=== PATIENT | female | born 1995 | race Caucasian/White ===

== ENCOUNTER 2020-06-03 06:04 | Emergency (ER) | payer MEDICAID ==
[~2020-06-03] VITALS: Ht 172.7 cm; Wt 113.6 kg
[~2020-06-03 06:04] MED LIST: CYCL-1 PO
[2020-06-03 06:10] VITALS: BP 156/108
[2020-06-03] MEDS ORDERED: SULF1TAB49 PO (06:30)
== END 2020-06-03 07:10 | disposition home or self-care (01) ==
LOC: ER 06:04
DX: S01.332A Puncture wound without foreign body of left ear, initial encounter (principal); H60.12 Cellulitis of left external ear; M19.90 Unspecified osteoarthritis, unspecified site; M41.9 Scoliosis, unspecified; Z79.899 Other long term (current) drug therapy; X58.XXXA Exposure to other specified factors, initial encounter; Y93.89 Activity, other specified; Y92.89 Other specified places as the place of occurrence of the external cause; Y99.8 Other external cause status
CPT/HCPCS: 99283

== ENCOUNTER 2020-06-08 01:16 | Emergency (ER) | payer MEDICAID ==
[~2020-06-08] VITALS: Ht 172.7 cm; Wt 113.6 kg
[~2020-06-08 01:16] MED LIST changes: +SULF1TAB49 PO
--- NOTE | 2020-06-08 02:39 | NUR ---
HR 102, OTHERWISE VSS. PT REPORTS PAIN NOW 5 OUT OF 10, FROM 8 OUT OF 10 EARLIER. REFUSING COVID TEST, STATES SHE HAS BEEN VERY CAUTIOUS AND ONLY SEES HER IMMEDIATELY FAMILY. EKG COMPLETED. MD TO TALK WITH PT NOW SHE WANTS TO ORDER LABS.
[2020-06-08 03:09] LABS: BASOPHILS % (AUTO) 0.6 % (0-1); EOSINOPHILS # (AUTO) 0.1 X10'3 (0-0.9); EOSINOPHILS % (AUTO) 1.5 % (0-6); HEMATOCRIT 37.6 % (35.0-45.0); HEMOGLOBIN 12.5 g/dl (12.0-16.0); LYMPHOCYTES # (AUTO) 1.1 X10'3 (1.1-4.8); LYMPHOCYTES % (AUTO) 20.4 % (21-51); MEAN CORPUSCULAR HEMOGLOBIN 26.7 PG (27.0-31.0); MEAN CORPUSCULAR HGB CONC 33.3 g/dL (33.0-36.5); MEAN CORPUSCULAR VOLUME 80.2 FL (78-98); MEAN PLATELET VOLUME 7.8 FL (7.4-10.4); MONOCYTES # (AUTO) 0.7 X10'3 (0-0.9); NEUTROPHILS # (AUTO) 3.3 X10'3 (1.8-7.7); NEUTROPHILS % (AUTO) 63.5 % (42-75); PLATELET COUNT 370 X10'3 (140-440); RED BLOOD COUNT 4.69 X10'6 (4.20-5.60); RED CELL DISTRIBUTION WIDTH 13.8 % (11.5-14.5); WHITE BLOOD COUNT 5.1 X10'3 (4.5-11.0)
[2020-06-08 03:19] LABS: ALBUMIN 3.3 G/DL (3.4-5.0); ANION GAP 10 (8-16); BLOOD UREA NITROGEN 8 MG/DL (7-18); BUN/CREATININE RATIO 10.8 (6.6-38.0); CHLORIDE 104 MMOL/L (99-107); CREATININE 0.74 MG/DL (0.40-0.90); GLUCOSE 98 MG/DL (70-104); SODIUM 136 MMOL/L (135-145); TOTAL CARBON DIOXIDE 21.8 MMOL/L (24-32); eGFR > 90 ML/MIN
[2020-06-08 03:22] LABS: D-DIMER 0.72 MG/L FEU (0-0.50)
[2020-06-08] MEDS ORDERED: iohexol 350MG/ML 100ml bottle IV ONE (03:43)
[2020-06-08 04:20] VITALS: BP 157/110
[2020-06-08] MEDS ORDERED: DESO1TAB PO (04:42)
[2020-06-08] MEDS ORDERED: BACDS PO (04:42)
== END 2020-06-08 05:55 | disposition home or self-care (01) ==
LOC: ER 01:17
DX: B34.9 Viral infection, unspecified (principal); R06.09 Other forms of dyspnea; R00.2 Palpitations; M54.2 Cervicalgia; R05 Cough; M79.10 Myalgia, unspecified site; M19.90 Unspecified osteoarthritis, unspecified site; Z79.2 Long term (current) use of antibiotics; Z79.899 Other long term (current) drug therapy
CPT/HCPCS: 36415; 71275; 80048; 85025; 85379; 93005; 99285; Q9967

== ENCOUNTER 2020-06-10 16:38 | Emergency (ER) | payer MEDICAID ==
[~2020-06-10] VITALS: Ht 172.7 cm; Wt 116.0 kg
[~2020-06-10 16:38] MED LIST changes: +BACDS PO; -CYCL-1 PO; +DESO1TAB PO; -SULF1TAB49 PO
[2020-06-10 16:50] VITALS: BP 140/97
[2020-06-10] MEDS ORDERED: prednisone 10mg tablet PO SCH (19:15)
[2020-06-10] MEDS ORDERED: predniSONE 20 mg tablet PO ONE (19:15)
[2020-06-10] MEDS ORDERED: famotidine 20mg tablet PO ONE (19:15)
[2020-06-10] MEDS ORDERED: diphenhydrAMINE 25mg capsule PO ONE (19:15)
[2020-06-10] MEDS ORDERED: FAMO-128 PO (19:18)
[2020-06-10] MEDS ORDERED: PRED20TA PO (19:18)
[2020-06-10] MEDS ORDERED: DIPH-423 PO (19:18)
== END 2020-06-10 19:40 | disposition home or self-care (01) ==
LOC: ER 16:39
DX: L50.9 Urticaria, unspecified (principal); M19.90 Unspecified osteoarthritis, unspecified site; Z79.899 Other long term (current) drug therapy
CPT/HCPCS: 99284; J7512; Q0163

== ENCOUNTER 2021-03-16 16:17 | Emergency (ER) | payer MEDICAID ==
[~2021-03-16] VITALS: Ht 172.7 cm; Wt 108.2 kg
[~2021-03-16 16:17] MED LIST changes: -BACDS PO; +DIPH-423 PO; +FAMO-128 PO; +SULF1TAB45 PO
[2021-03-16 16:27] VITALS: BP 153/90
[2021-03-16 17:21] LABS: BASOPHILS % (AUTO) 0.3 % (0-1); EOSINOPHILS % (AUTO) 0.2 % (0-6); HEMATOCRIT 38.4 % (35.0-45.0); HEMOGLOBIN 12.6 g/dl (12.0-16.0); LYMPHOCYTES # (AUTO) 1.6 X10'3 (1.1-4.8); LYMPHOCYTES % (AUTO) 12.9 % (21-51); MEAN CORPUSCULAR HEMOGLOBIN 27.4 PG (27.0-31.0); MEAN CORPUSCULAR HGB CONC 32.8 g/dL (33.0-36.5); MEAN CORPUSCULAR VOLUME 83.6 FL (78-98); MONOCYTES # (AUTO) 0.4 X10'3 (0-0.9); MONOCYTES % (AUTO) 3.5 % (2-12); NEUTROPHILS # (AUTO) 10.4 X10'3 (1.8-7.7); NEUTROPHILS % (AUTO) 83.1 % (42-75); PLATELET COUNT 447 X10'3 (140-440); RED BLOOD COUNT 4.59 X10'6 (4.20-5.60); RED CELL DISTRIBUTION WIDTH 15.8 % (11.5-14.5); WHITE BLOOD COUNT 12.6 X10'3 (4.5-11.0)
[2021-03-16 17:37] LABS: ALANINE AMINOTRANSFERASE 18 U/L (12-78); ALBUMIN 3.4 G/DL (3.4-5.0); ALBUMIN/GLOBULIN RATIO 0.8 (1.1-1.5); ALKALINE PHOSPHATASE 96 IU/L (46-116); ANION GAP 11 (8-16); ASPARTATE AMINO TRANSFERASE 8 U/L (10-37); BILIRUBIN,TOTAL 0.3 MG/DL (0.1-1.0); BLOOD UREA NITROGEN 13 MG/DL (7-18); BUN/CREATININE RATIO 17.1 (6.6-38.0); CALCIUM 8.6 MG/DL (8.5-10.1); CHLORIDE 107 MMOL/L (99-107); CREATININE 0.76 MG/DL (0.40-0.90); GLUCOSE 142 MG/DL (70-104); LIPASE 60 U/L (73-393); POTASSIUM 3.9 MMOL/L (3.5-5.1); SODIUM 142 MMOL/L (135-145); TOTAL CARBON DIOXIDE 24.3 MMOL/L (24-32); TOTAL PROTEIN 7.6 G/DL (6.4-8.2); eGFR > 90 ML/MIN
[2021-03-16] MEDS ORDERED: HYDR-3686 PO (22:02)
== END 2021-03-16 22:24 | disposition home or self-care (01) ==
LOC: ER 16:19 → ED HOLD 20:40 → ER 20:40
DX: R07.89 Other chest pain (principal); R10.13 Epigastric pain; M19.90 Unspecified osteoarthritis, unspecified site; Z79.899 Other long term (current) drug therapy
CPT/HCPCS: 71045; 80053; 83690; 84484; 85025; 93005; 99285

== ENCOUNTER 2022-01-26 18:20 | Emergency (ER) | payer MEDICAID ==
[~2022-01-26] VITALS: Ht 172.7 cm; Wt 122.0 kg
[2022-01-26 18:25] VITALS: BP 144/99
[2022-01-26 19:30] LABS: MONOTEST NEGATIVE (Neg)
== END 2022-01-26 20:36 | disposition home or self-care (01) ==
LOC: ER 18:20
DX: J02.9 Acute pharyngitis, unspecified (principal); M19.90 Unspecified osteoarthritis, unspecified site
CPT/HCPCS: 36415; 86308; 87081; 87880; 99283

== ENCOUNTER 2023-08-13 15:40 | Emergency (ER) | payer MEDICAID ==
[~2023-08-13] VITALS: Ht 172.7 cm; Wt 122.8 kg
[2023-08-13 15:41] VITALS: BP 147/87; O2SAT 99
[2023-08-13 16:10] LABS: BILIRUBIN,URINE NEGATIVE (Neg); CLARITY,URINE SLIGHTLY CLOUDY (Clear); COLOR,URINE YELLOW (Yellow); GLUCOSE, URINE NEGATIVE (Neg); KETONES,URINE NEGATIVE (Neg); LEUKOCYTE ESTERASE ,URINE NEGATIVE (Neg); NITRITES, URINE NEGATIVE (Neg); OCCULT BLOOD,URINE NEGATIVE (Neg); PROTEIN,URINE NEGATIVE (Neg); UROBILINOGEN,URINE 0.2 E.U/dL (0.2-1.0)
[2023-08-13 16:20] LABS: UA COLLECTION TYPE CLN CATCH MIDSTREAM
[2023-08-13 16:23] LABS: MUCUS STRANDS MANY /LPF (Neg); SQUAMOUS EPITHELIAL CELL,UR MANY /LPF (FEW)
[2023-08-13 16:24] LABS: AMORPHOUS URATES 1+; BACTERIA,URINE FEW /HPF (Neg); RBC,URINE 0-2 /HPF (0-2); TRANSITIONAL EPI CELLS,URINE FEW /HPF; WBC,URINE 0-4 /HPF (0-4)
[2023-08-13 18:03] LABS: URINE HCG NEGATIVE (NEG)
[2023-08-13 19:27] LABS: BASOPHILS # (AUTO) 0.1 X10'3 (0-0.2); BASOPHILS % (AUTO) 0.8 % (0-1); EOSINOPHILS # (AUTO) 0.7 X10'3 (0-0.9); EOSINOPHILS % (AUTO) 6.3 % (0-6); HEMATOCRIT 42.5 % (35.0-45.0); LYMPHOCYTES # (AUTO) 3.8 X10'3 (1.1-4.8); LYMPHOCYTES % (AUTO) 32.4 % (21-51); MEAN CORPUSCULAR HEMOGLOBIN 28.1 PG (27.0-31.0); MEAN CORPUSCULAR VOLUME 84.9 FL (78-98); MONOCYTES # (AUTO) 0.7 X10'3 (0-0.9); MONOCYTES % (AUTO) 6.1 % (2-12); NEUTROPHILS # (AUTO) 6.3 X10'3 (1.8-7.7); NEUTROPHILS % (AUTO) 54.4 % (42-75); PLATELET COUNT 372 X10'3 (140-440); RED CELL DISTRIBUTION WIDTH 14.3 % (11.5-14.5); WHITE BLOOD COUNT 11.6 X10'3 (4.5-11.0)
[2023-08-13 20:03] LABS: ALBUMIN 4.1 G/DL (3.4-5.0); ANION GAP 11 (8-16); BLOOD UREA NITROGEN 12 MG/DL (7-18); BUN/CREATININE RATIO 20.3 (10.0-20.0); CALCIUM 9.3 MG/DL (8.5-10.1); CHLORIDE 108 MMOL/L (99-107); CREATININE 0.59 MG/DL (0.40-0.90); GLUCOSE 85 MG/DL (70-104); POTASSIUM 3.8 MMOL/L (3.5-5.1); SODIUM 143 MMOL/L (135-145); eCRCL 144 ML/MIN; eGFR > 90 ML/MIN
[2023-08-13 20:08] LABS: BETA HCG,QUANTITATIVE < 1.0 mIU/ml
[2023-08-13] MEDS ORDERED: DOCU-148 PO (20:50)
[2023-08-13] MEDS ORDERED: POLY119P2 PO (20:50)
[2023-08-13 21:42] VITALS: PULSE 88; RESP 15; TEMP 98.1
== END 2023-08-13 21:43 | disposition home or self-care (01) ==
LOC: ER 15:41
DX: K59.00 Constipation, unspecified (principal); E11.9 Type 2 diabetes mellitus without complications; M19.90 Unspecified osteoarthritis, unspecified site; Z79.899 Other long term (current) drug therapy; Z79.2 Long term (current) use of antibiotics
CPT/HCPCS: 36415; 71045; 74176; 80048; 81001; 81025; 84702; 85025; 86885; 86900; 86901; 93005; 99285

== ENCOUNTER → 2023-10-16 | Outpatient (CLI) | payer MEDICAID ==
[~2023-10-16] MED LIST changes: +DOCU-148 PO; +POLY119P2 PO
== END | disposition home or self-care (01) ==
LOC: RAD 10:09
PROVIDERS: ATTEND Family Medicine
DX: R05.1 Acute cough (principal)
CPT/HCPCS: 71046